=== PATIENT | male | born 1990 | race Caucasian/White ===

== ENCOUNTER 2018-06-05 11:25 | Emergency (ER) | payer BC ==
[~2018-06-05] VITALS: Ht 175.3 cm; Wt 72.6 kg
[2018-06-05 11:39] VITALS: BP 134/86
[2018-06-05] MEDS ORDERED: TORADOL ONE (11:41)
--- NOTE | 2018-06-05 11:41 | NUR ---
ARRIVAL PATIENT ARRIVED TO [facility] AMBULATORY, C/O OF LEFT EAR PAIN AND CONGESTION FOR THE PAST 2 DAYS, ATTEMPTED TO TREAT HIMSELF AT HOME WITH NO RELIEF, CAME TO THE ED FOR FURTHER EVAL.
[2018-06-05] MEDS ORDERED: TORADOL IM ONE (12:00)
--- NOTE | 2018-06-05 12:17 | ER.PDOC ---
General Chief Complaint: Earache Stated Complaint: L EAR PAIN,COUGH Time seen by MD: 12:33 Source: patient Exam Limitations: no limitations History of Present Illness Timing/Duration: yesterday Severity: moderate Location of Pain: (L) Ear Associated Symptoms: sharp earache Allergies: Coded Allergies: Penicillins (Verified Allergy, Unknown, F, 06/05/18) Sulfa (Sulfonamide Antibiotics) (Verified Allergy, Unknown, 06/05/18) Home Meds No Active Prescriptions or Reported Meds Past Medical History Medical History: no pertinent history Surgical History: other Social History Smoking: non-smoker Alcohol Use: none Drug Use: none Reviewed Nursing Reviewed: Vital Signs, Abn. Noted Respiratory: cough, shortness of breath All Other Systems: Reviewed and Negative Physical Exam Ears: auricle, external. canal nml TM's: erythema (L) Mouth/Throat: lips/gums nml, pharynx nml Nose: nml inspection Head/Neck: atraumatic, neck nml inspection Eyes: eyes nml inspection, PERRL, no nystagmus Resp/CVS: no resp distress, lungs clear, heart sounds nml, reg. rate & rhythm Abdomen: non-tender, no organomegaly Skin Exam: Normal Color, Warm/Dry NEURO/PSYCH: oriented X3, mood/effect nml Results/Orders Results/Orders Administered Medications Medications (Trade) Dose Ordered Sig/Rj Route PRN Reason Start Time Stop Time Status Last Admin Dose Admin Ketorolac Tromethamine (Toradol) 60 mg OT ONCE IM 06/05/18 12:00 06/05/18 12:01 DC 06/05/18 11:49 Course Sepsis Screening Results: Posi: POSITIVE SEPSIS RISK Vitals & review Data Vital Sign - Last 24 Hours 06/05/18 06/05/18 06/05/18 11:37 11:38 11:39 Temp 98.5 98.5 98.5 98.5 98.5 98.5 Pulse 91 91 91 Resp 18 B/P (MAP) 134/86 (102) Pulse Ox 95 95 O2 Delivery Room Air Room Air Departure Time of Disposition: 13:30 Disposition: 01 HOME, SELF-CARE Impression: Primary Impression: Otalgia Condition: Improved Referrals: PCP,UNKNOWN (PCP) PRIMARY CARE PROVIDER Scripts No Active Prescriptions or Reported Meds Duration or Time Spent with Pa: 30 MIN ANUSHA BANEGAS MD Jun 05, 2018 12:17
[2018-06-05 12:20] VITALS: BP 131/81
[2018-06-05 12:25] VITALS: BP 131/81
== END 2018-06-05 12:25 | disposition home or self-care (01) ==
LOC: ER 11:25
DX: H92.02 Otalgia, left ear (principal); R05 Cough; R06.02 Shortness of breath; Z88.0 Allergy status to penicillin; Z88.2 Allergy status to sulfonamides
CPT/HCPCS: 96372; 99283; J1885